=== PATIENT | female | born 1990 | race Two or more races ===

== ENCOUNTER 2017-06-12 15:38 | Emergency (ER) | payer SELFPAY ==
[2017-06-12 15:43] VITALS: BP 141/74; BMI 42.7
[2017-06-12] MEDS ORDERED: TORADOL 60 MG VIAL IM ONE (18:07)
[2017-06-12] MEDS ORDERED: TORADOL 60 MG VIAL ONE (18:09)
--- NOTE | 2017-06-12 18:30 | RAD ---
Examination: Left ankle, three views History: Trauma, heard a pop Findings: No definite fracture, dislocation or joint space asymmetry. Impression: No significant osseous abnormality noted. Reported By:
--- NOTE | 2017-06-12 18:41 | DR.EXTPAIN ---
HPI - Time seen Time seen: 17:55 - PCP Primary Care Physician: BAILEY - HPI Comment HPI Comment: DIFFICULTY BEARING WEIGHT. - Complaint/Symptoms Chief Complaint Doctor Comments: HISTORY BELOW. Chief Complaint:: PT C/O WALKING AND ROLLING HER LEFT ANKLE AND HEARING A POP,, PT IS LIMPING.. Self Treatment fo Chief Complaint: RODERICK BANDAGE. - Nurses notes reviewed Nurses Notes Review: Yes - Source History Provided: Patient - Mode of arrival Mode of Arrival: Wheelchair - Timing Onset of Chief Complaint: 06/11/17 - Context History of: None - Associated signs and symptoms Associated Signs and Symptoms: None, Pain, Swelling, Bruising PMH - PMH Past Medical History: No Past Surgical History: Yes Past Surgical History Comment: , GALL BLADDER EYE.. - Family History History of Family Medical Conditions: No - Social History Does patient currently use any type of tobacco product: No Have you used tobacco products in the last 12 months: No Type of Tobacco Use: None Does any household member use tobacco: No Alcohol Use: None Do you use any recreational Drugs:: No Lives With: Family Lives Where: Home - infectious screening In the last 2 months have you had wt loss of >10#?: NO Have you had fever, night sweats or hemotysis?: No Have you traveled outside the country in the last 6 months?: No Isolation: Standard ROS - Review of Systems Constitutional: No Symptoms Reported Eyes: No Symptoms Reported ENTM: No Symptoms Reported Respiratoy: No Symptoms Reported Cardiovascular: No Symptoms Reported Gastrointestinal/Abdominal: No Symptoms Reported Genitourinary: No Symptoms Reported Neurological: No Symptoms Reported Musculoskeletal: Left, Ankle Integumentary: No Symptoms Reported Hematologic/Lymphatic: No Symptoms Reported Endocrine: No Symptoms Reported All Other Systems: Reviewed and Negative PE - Vital Signs Vitals: Temperature 97.0 F Pulse Rate 76 Respiratory Rate 18 Blood Pressure 141/74 O2 Sat by Pulse Oximetry 98 - General Limitations: No Limitations General Appearance: Alert - Head Head Exam: Normal Inspection - Eyes Eye exam: Normal Appearance - ENT ENT Exam: Normal External Ear Exam - Neck Neck Exam: Trachea Midline - Chest Chest Inspection: Symmetric Chest Wall Rise - Respiratory Respiratory Exam: Normal Lung Sounds Bilat Respiratory Exam: Bilateral Clear to Auscultation - Cardiovascular Cardiovascular Exam: Regular Rate, Normal Rhythm, Normal Heart Sounds - Abdominal Exam Abdominal Exam: Normal Inspection - Extremities Extremities Exam: Tenderness (LT ANKLE SWOLLEN MEDIAL MALLEOLUS AND TENDER. ROM DECREASE. PULSE INTACT.) - Lower Extremities Neurovascular/Tendon Exam: Normal Capillary Refill Gait Exam: Observed & Limited by Pain - Back Back Exam: Normal Inspection - Neurological Neurological Exam: Alert, Oriented X3 - Psychiatric Psychiatric Exam: Normal Affect, Normal Mood - Skin Skin Exam: Normal Color MDM - Differential Diagnosis Differential Diagnosis: Contusion, Fracture, Sprain Course - Treatment Treatment: SEE ORDERS. - Education/Counseling Education/Counseling: Patient, Education Educated On: Diagnosis, Needs for Follow Up ROR - XRAY XRAY Interpreted by: Radiologist XRAY Findings: REPORT DISCUSS WITH PATIENT. - Diagnosis Discharge Problem: Ankle sprain Qualifiers: Encounter type: initial encounter Involved ligament of ankle: unspecified ligament Laterality: left Qualified Code(s): S93.402A - Sprain of unspecified ligament of left ankle, initial encounter - Discharge Plan Disposition: 01 HOME, SELF-CARE Condition: Stable Prescriptions: Ibuprofen [MOTRIN TAB 800 MG *] 800 mg PO Q8H PRN #20 tab PRN Reason: Pain/Inflammation Tramadol HCl 50 mg PO Q8H #15 tablet - Follow ups/Referrals Follow ups/Referrals: [facility],None [Primary Care Provider] - 2 days - Instructions Instructions: Acute Ankle Sprain With Phase I Rehab-SportsMed Additional Instructions: RETURN TO ED IF WORSE.
[2017-06-12] MEDS ORDERED: ULTRAM PO ONE (18:48)
[2017-06-12] MEDS ORDERED: MOTRIN TAB 800 MG PO ONE ×2 (18:49)
[2017-06-12] MEDS ORDERED: ULTRAM ONE (18:49)
== END 2017-06-12 18:49 | disposition home or self-care (01) ==
LOC: ER 15:38
DX: S93.402A Sprain of unspecified ligament of left ankle, initial encounter (principal); Y33.XXXA Other specified events, undetermined intent, initial encounter; Y92.9 Unspecified place or not applicable
CPT/HCPCS: 73610; 99282; J1885